=== PATIENT | female | born 1960 | race Caucasian/White ===

== ENCOUNTER → 2017-11-21 | Outpatient (CLI) | payer BC | END | disposition home or self-care (01) | LOC: PCVCIMAG 12:31 | DX: I25.10 Atherosclerotic heart disease of native coronary artery without angina pectoris (principal); R94.31 Abnormal electrocardiogram [ECG] [EKG]; I10 Essential (primary) hypertension; E78.5 Hyperlipidemia, unspecified; Z87.891 Personal history of nicotine dependence | CPT/HCPCS: 78452; 93017; A9500 ==

== ENCOUNTER → 2018-12-18 | Outpatient (CLI) | payer BC ==
--- NOTE | 2018-12-18 14:09 | PCVCIMAG ---
APPROVED REPORT Study performed: 12/18/2018 13:25:49 EXAM: Comprehensive 2D, Doppler, and color-flow Echocardiogram Patient Location: Echo lab Status: routine BSA: 1.59 HR: 60 bpmBP: 106/60 mmHg Rhythm: NSR Other Information Study Quality: Adequate Risk Factors: Cardiac Risk Factors: Hyperlipidemia Indications CAD 2D Dimensions IVSd: 9.57 (7-11mm) LVDd: 37.81 mm PWd: 9.60 (7-11mm) LVDs: 27.04 (25-40mm) Left Atrium: 35.18 (27-40mm) Aortic Root: 24.31 mm LV Single Plane 4CH: 64.26 % LV Single Plane 2CH: 62.47 % Biplane EF: 63.2 % Volumes Left Atrial Volume (Systole) Single Plane 4CH: 31.51 mLSingle Plane 2CH: 33.59 mL LA ESV Index: 21.00 mL/m2 Aortic Valve AoV Peak Partha.: 1.76 m/s AO Peak Gr.: 12.44 mmHgLVOT Max P.90 mmHg LVOT Max V: 1.40 m/s Mitral Valve E/A Ratio: 0.9 MV Decel. Time: 297.79 ms MV E Max Partha.: 0.64 m/s MV A Partha.: 0.69 m/s IVRT: 117.65 ms Pulmonary Valve PV Peak Partha.: 0.94 m/sPV Peak Gr.: 3.53 mmHg Pulmonary Vein P Vein S: 0.24 m/sP Vein A: 0.49 m/s P Vein D: 0.47 m/sP Vein A Dur.: 124.6 msec P Vein S/D Ratio: 0.51 Tricuspid Valve TR Peak Partha.: 2.21 m/s TR Peak Gr.: 19.55 mmHg Left Ventricle The left ventricle is normal size. There is normal LV segmental wall motion. There is normal left ventricular wall thickness. Left ventricular systolic function is normal. The left ventricular ejection fraction is within the normal range. LVEF is 60-65%. Grade I - abnormal relaxation pattern. Right Ventricle The right ventricle is normal size. The right ventricular systolic function is normal. Atria The left atrium size is normal. The right atrium size is normal. Aortic Valve The aortic valve is normal in structure. Trace aortic regurgitation. There is no aortic valvular stenosis. Mitral Valve The mitral valve is normal in structure. Trace mitral regurgitation. No evidence of mitral valve stenosis. Tricuspid Valve The tricuspid valve is normal in structure. Trace tricuspid regurgitation with PAP of 27 mmHg. Pulmonic Valve The pulmonary valve is normal in structure. Mild pulmonic regurgitation. Great Vessels The aortic root is normal in size. IVC is normal in size and collapses >50% with inspiration. Pericardium There is no pericardial effusion. There is no pleural effusion. <Conclusion> The left ventricle is normal size. There is normal left ventricular wall thickness. Left ventricular systolic function is normal. Grade I - abnormal relaxation pattern. The right ventricle is normal size. The left atrium size is normal. Trace aortic regurgitation. Trace mitral regurgitation. Trace tricuspid regurgitation with PAP of 27 mmHg.
== END | disposition home or self-care (01) ==
LOC: PCVCIMAG 13:20
PROVIDERS: ATTEND Internal Medicine Cardiovascular Disease
DX: I37.1 Nonrheumatic pulmonary valve insufficiency (principal); I25.10 Atherosclerotic heart disease of native coronary artery without angina pectoris
CPT/HCPCS: 93306